=== PATIENT | male | born 1935 | race Caucasian/White ===

== ENCOUNTER 2016-11-20 15:16 | Emergency (ER) | payer OTHER ==
[~2016-11-20] VITALS: Ht 193 cm; Wt 104.7 kg
[~2016-11-20 15:16] MED LIST: ANTIVERT12.5 MG PO; LYRICA50 MG PO; MELATONIN5 M1 PO; MEVACOR40 MG PO; POTASSIUM GLUCO2 MEQ PO; PROTONIX40 MG PO; TYLENOL EXTRA500 MG PO
[2016-11-20 17:29] LABS: HEMATOCRIT 40.9 % (38.0-50.0); MCH 28.4 PG (29.0-34.0); MCHC 33.5 G/DL (30.0-36.0); MCV 84.7 FL (86-99); MEAN PLAT.VOLUME 10.5 uM^3 (9.0-12.4); PLATELET COUNT 199 K/uL (156-360); RBC DIS.WIDTH-CV 13.1 % (11.8-14.6); RBC DIS.WIDTH-SD 40.3 % (39-53); RED BLOOD COUNT 4.83 M/uL (4.00-5.50); WHITE BLOOD COUNT 6.5 K/uL (4.1-10.2)
[2016-11-20 17:36] LABS: CHLORIDE 107 mEq/L (99-109); SODIUM 142 mEq/L (136-147)
[2016-11-20 17:39] LABS: GLUCOSE 107 mg/dL (70-99)
[2016-11-20 17:40] LABS: ANION GAP 8 MEQ/L (2-14)
[2016-11-20 17:41] LABS: TOTAL BILIRUBIN 0.8 mg/dL (0.0-1.0)
[2016-11-20 17:42] LABS: ALKALINE PHOSPHATASE 63 IU/L (3-129); GFR ESTIMATE (CALCULATED) 56 mL/min/
[2016-11-20 17:44] LABS: UREA NITROGEN (BUN) 20 mg/dL (9-23)
[2016-11-20] MEDS ORDERED: ELIQUIS2.5 MG PO (20:05)
[2016-11-20] MEDS ORDERED: ELIQUIS5 MG PO (20:21)
[2016-11-20 20:52] VITALS: BP 150/75
== END 2016-11-20 20:53 | disposition home or self-care (01) ==
LOC: EME 15:16
PROVIDERS: Nurse Practitioner Family
DX: I82.442 Acute embolism and thrombosis of left tibial vein (principal); K21.9 Gastro-esophageal reflux disease without esophagitis
CPT/HCPCS: 80053; 85027; 93971; 99281; 99284

== ENCOUNTER 2017-01-09 20:38 | Emergency (ER) | payer OTHER ==
[~2017-01-09] VITALS: Ht 193 cm; Wt 103.2 kg
[~2017-01-09 20:38] MED LIST changes: +ELIQUIS2.5 MG PO; +ELIQUIS5 MG PO
[2017-01-09 22:37] LABS: HEMATOCRIT 44.9 % (38.0-50.0); MCH 27.9 PG (29.0-34.0); MCHC 32.7 G/DL (30.0-36.0); MCV 85.2 FL (86-99); MEAN PLAT.VOLUME 10.5 uM^3 (9.0-12.4); PLATELET COUNT 206 K/uL (156-360); RBC DIS.WIDTH-CV 13.2 % (11.8-14.6); RBC DIS.WIDTH-SD 41.2 % (39-53); RED BLOOD COUNT 5.27 M/uL (4.00-5.50); WHITE BLOOD COUNT 8.1 K/uL (4.1-10.2)
[2017-01-09 22:46] LABS: CHLORIDE 105 mEq/L (99-109); POTASSIUM 3.8 mEq/L (3.7-5.4); SODIUM 139 mEq/L (136-147)
[2017-01-09 22:48] LABS: GLUCOSE 113 mg/dL (70-99)
[2017-01-09 22:50] LABS: ANION GAP 10 MEQ/L (2-14)
[2017-01-09 22:52] LABS: GFR ESTIMATE (CALCULATED) 56 mL/min/
[2017-01-09 22:53] LABS: UREA NITROGEN (BUN) 15 mg/dL (9-23)
[2017-01-10] MEDS ORDERED: PREDNISONE20 MG PO (00:10)
[2017-01-10 00:36] VITALS: BP 123/81
== END 2017-01-10 00:30 | disposition home or self-care (01) ==
LOC: EXP 20:38 → EME 20:38 → EXP 01-10 00:30
PROVIDERS: Physician Assistant
DX: R21 Rash and other nonspecific skin eruption (principal); Z88.1 Allergy status to other antibiotic agents; Z85.828 Personal history of other malignant neoplasm of skin
CPT/HCPCS: 80048; 85027; 99281; 99283; J7512

== ENCOUNTER 2017-01-13 11:14 | Emergency (ER) | payer OTHER ==
[~2017-01-13] VITALS: Ht 193 cm; Wt 93.6 kg
[~2017-01-13 11:14] MED LIST changes: +PREDNISONE20 MG PO
[2017-01-13] MEDS ORDERED: KEFLEX500 MG PO (14:05)
[2017-01-13 14:06] VITALS: BP 140/87
== END 2017-01-13 14:10 | disposition home or self-care (01) ==
LOC: EME 11:14
DX: S62.616B Displaced fracture of proximal phalanx of right little finger, initial encounter for open fracture (principal); S61.216A Laceration without foreign body of right little finger without damage to nail, initial encounter; Z23 Encounter for immunization; W31.89XA Contact with other specified machinery, initial encounter; W23.0XXA Caught, crushed, jammed, or pinched between moving objects, initial encounter; Z79.01 Long term (current) use of anticoagulants; Z86.718 Personal history of other venous thrombosis and embolism
CPT/HCPCS: 73140; 99281; 99285; J0690; J7050

== ENCOUNTER 2017-05-08 11:26 | Emergency (ER) | payer OTHER ==
[~2017-05-08] VITALS: Ht 193 cm; Wt 104.1 kg
[~2017-05-08 11:26] MED LIST changes: +KEFLEX500 MG PO
[2017-05-08] MEDS ORDERED: MOTRIN800 MG PO (13:14)
[2017-05-08 13:44] VITALS: BP 136/66
== END 2017-05-08 13:45 | disposition home or self-care (01) ==
LOC: EME 11:26
DX: S93.401A Sprain of unspecified ligament of right ankle, initial encounter (principal); W10.9XXA Fall (on) (from) unspecified stairs and steps, initial encounter; K21.9 Gastro-esophageal reflux disease without esophagitis; Z86.718 Personal history of other venous thrombosis and embolism
CPT/HCPCS: 73610; 99281; 99284

== ENCOUNTER 2018-03-11 10:17 | Emergency (ER) | payer OTHER ==
[~2018-03-11] VITALS: Ht 188 cm; Wt 100.4 kg
[~2018-03-11 10:17] MED LIST changes: +MOTRIN800 MG PO
[2018-03-11 10:55] LABS: APPEARANCE SL.HAZY ((CLEAR)); BILIRUBIN NEGATIVE; BLOOD NEGATIVE; COLOR YELLOW ((YELLOW)); GLUCOSE (STRIP) NEGATIVE; KETONES NEGATIVE; LEUKOCYTES LARGE; NITRITE NEGATIVE; PROTEIN (STRIP) NEGATIVE; UROBILINOGEN 0.2 MG/DL (0.2-1.0)
[2018-03-11 10:56] LABS: HEMATOCRIT 41.2 % (38.0-50.0); MCH 28.9 PG (29.0-34.0); MCV 85.1 FL (86-99); RBC DIS.WIDTH-CV 13.9 % (11.8-14.6); RBC DIS.WIDTH-SD 43.1 % (39-53); RED BLOOD COUNT 4.84 M/uL (4.00-5.50); WHITE BLOOD COUNT 6.3 K/uL (4.1-10.2)
[2018-03-11 11:02] LABS: BACTERIA RARE /HPF; CALCIUM OXALATE CRYSTALS 1+ /HPF; EPITHELIAL CELLS RARE /HPF; HYALINE CASTS 0-5 /LPF; MUCUS TRACE /LPF; RED BLOOD CELLS 15-20 /HPF (0-5); UCUL ADDED? YES; WHITE BLOOD CELLS 20-30 /HPF (0-5)
[2018-03-11 11:07] LABS: CHLORIDE 107 mEq/L (99-109); SODIUM 141 mEq/L (136-147)
[2018-03-11 11:08] LABS: GLUCOSE 146 mg/dL (70-99)
[2018-03-11 11:11] LABS: PLATELET COUNT 144 K/uL (156-360)
[2018-03-11 11:12] LABS: CREATININE 1.3 mg/dL (0.6-1.3); GFR ESTIMATE (CALCULATED) 56 mL/min/ (58.99-99999)
[2018-03-11 11:13] LABS: UREA NITROGEN (BUN) 15 mg/dL (9-23)
[2018-03-11] MEDS ORDERED: NAPROSYN500 MG PO (12:28)
[2018-03-11] MEDS ORDERED: ANTIVERT25 MG PO (12:33)
[2018-03-11 12:53] VITALS: BP 132/71
== END 2018-03-11 13:05 | disposition home or self-care (01) ==
LOC: EME 10:17
DX: R51 Headache (principal); J18.9 Pneumonia, unspecified organism; R39.9 Unspecified symptoms and signs involving the genitourinary system; E78.5 Hyperlipidemia, unspecified; Z85.828 Personal history of other malignant neoplasm of skin; Z88.1 Allergy status to other antibiotic agents
CPT/HCPCS: 70450; 71046; 80048; 81003; 83605; 85027; 87086; 99281; 99284

== ENCOUNTER → 2018-04-05 | Outpatient (CLI) | payer MEDICARE, OTHER ==
[~2018-04-05] MED LIST changes: +ANTIVERT25 MG PO; +NAPROSYN500 MG PO
== END | disposition home or self-care (01) ==
LOC: CDC 13:57
DX: Z01.810 Encounter for preprocedural cardiovascular examination (principal); I44.0 Atrioventricular block, first degree; I49.3 Ventricular premature depolarization; I45.4 Nonspecific intraventricular block; R94.31 Abnormal electrocardiogram [ECG] [EKG]
CPT/HCPCS: 93000